=== PATIENT | female | born 1945 | race African-American/Black ===

== ENCOUNTER 2018-11-15 10:24 | Emergency (ER) | payer OTHER, BC ==
[~2018-11-15] VITALS: Ht 165.1 cm; Wt 83.9 kg
[2018-11-15 10:24] VITALS: BP 166/92
[~2018-11-15 10:24] MED LIST: ACTIGALL300 MG PO; AMLODIPINE BESY10 MG PO; ASPIR 8181 MG PO; CEPACOL SORE T1 EAC8 PO; LASIX 40 MG TAB40 M2 PO; LEVAQUIN 500 M500 M2 PO; MAGOX 400400 MG PO; NORCO 5-325 TA1 EACH PO; PEPCID20 MG PO; POTASSIUM20 PO; VIT D PO; WOMEN'S DAILY1 EAC1 PO
[2018-11-15] MEDS ORDERED: CIPRODEX OTIC7.5 ML OTIC (11:00)
== END 2018-11-15 11:00 | disposition home or self-care (01) ==
LOC: ER 10:24
DX: H60.93 Unspecified otitis externa, bilateral (principal); I10 Essential (primary) hypertension; Z90.710 Acquired absence of both cervix and uterus; Z90.49 Acquired absence of other specified parts of digestive tract

== ENCOUNTER → 2018-12-27 | Outpatient (CLI) | payer OTHER, BC ==
[~2018-12-27] MED LIST changes: +CIPRODEX OTIC7.5 ML OTIC
[2018-12-27 11:43] LABS: ABSOLUTE NEUTROPHILS 1.8 thou/uL (1.4-8.2); BASOPHILS 0.7 % (0.0-2.0); EOSINOPHILS 1.5 % (0.0-3.0); HEMATOCRIT 44.2 % (37.0-47.0); HEMOGLOBIN 15.1 gm/dL (12.0-15.0); LYMPHOCYTES 43.9 % (24.0-44.0); MCH 32.5 pg (26.0-34.0); MCHC 34.3 g/dL (28.0-37.0); MCV 94.9 fL (80.0-100.0); MONOCYTES 5.8 % (1.0-8.0); PLATELET COUNT 242 thou/uL (150-400); POLYS 48.1 % (36.0-66.0); RBC 4.66 mil/uL (4.20-5.00); WBC 3.8 thou/uL (4.0-11.0)
[2018-12-27 11:59] LABS: ALBUMIN 3.5 g/dL (3.4-5.0); ANION GAP 9 mmol/L (7-16); BUN 9 mg/dL (7-18); CALCIUM 9.3 mg/dL (8.5-10.1); CHLORIDE 107 mmol/L (98-107); CHOLESTEROL 226 mg/dL (<200); CO2 27 mmol/L (21-32); CREATININE 0.8 mg/dL (0.6-1.0); GLUCOSE 106 mg/dL (74-106); HDL CHOLESTEROL 74 mg/dL (>40); LDL CHOLESTEROL 136 mg/dL (<100); POTASSIUM 3.6 mmol/L (3.5-5.1); SGOT 25 U/L (15-37); SGPT 29 U/L (30-65); SODIUM 143 mmol/L (136-145); TC:HDL 3.1 Ratio (Not establshd); TOTAL BILIRUBIN 0.6 mg/dL (<0.1-1.0); TOTAL PROTEIN 7.4 g/dL (6.4-8.2); TRIGLYCERIDE 80 mg/dL (<150); VLDL 16 mg/dL (<40)
[2018-12-27 12:29] LABS: TSH 1.182 uIU/mL (0.358-3.740)
[2018-12-28 00:08] LABS: GLYCOHEMOGLOBIN (HGB A1C) 5.6 % (4.8-5.6)
== END ==
LOC: SEN 12-26 08:12
PROVIDERS: Nurse Practitioner Family
DX: I10 Essential (primary) hypertension (principal); Z83.3 Family history of diabetes mellitus; Z90.710 Acquired absence of both cervix and uterus; Z90.49 Acquired absence of other specified parts of digestive tract; Z79.899 Other long term (current) drug therapy

== ENCOUNTER → 2019-02-08 | Outpatient (CLI) | payer OTHER, BC ==
--- NOTE | 2019-02-09 09:18 | EKG ---
[place] [address] [facility] [place] [address] ELECTROCARDIOGRAM REPORT Name: YASMEEN CHAVEZY Nya [facility] [id number] ������������������ Admission: 02/08/19 ������������������ Attend Phys: ALETHEA Martínez Discharge: ������������������ Date of : 49 Report #: [id number] ����������������������������������������������������������������� [id number] THIS REPORT FOR: //name// [facility] Test Date: 2019-02-08 Test Time: 12:25:11 Pat Name: VELMA CHAVEZ Department: Room: Gender: F [employer] Specialist: Pieter POWERS : 1945 Requested By: Camila Campuzano Order Number: [id number] MD: Azeem Krishna Measurements Intervals [place] Rate: 50 P: 52 NM: 159 QRS: -19 QRSD: 104 T: 61 QT: 468 QTc: 427 Interpretive Statements Sinus rhythm Borderline left axis deviation Borderline T wave abnormalities Compared to ECG 10/07/2015 14:46:58 T-wave abnormality now present Electronically Signed On 02-09-2019 9:18:26 CDT by Azeem Krishna [email or web address] ��������������������������������������������� <ELECTRONICALLY SIGNED> ���������������������������������������� By: Azeem Krishna MD, [facility] ��������������������������������������������� 02/09/19 0918 1225 1225 Azeem Krishna MD, [facility] /EPI
== END ==
LOC: CV 11:03 → SEN 11:03
DX: I10 Essential (primary) hypertension (principal); I49.9 Cardiac arrhythmia, unspecified

== ENCOUNTER → 2019-03-13 | Outpatient (CLI) | payer OTHER, BC | LOC: SEN 03-09 10:42 | DX: S09.90XA Unspecified injury of head, initial encounter (principal); I10 Essential (primary) hypertension; V89.2XXA Person injured in unspecified motor-vehicle accident, traffic, initial encounter; Y93.89 Activity, other specified; Y92.89 Other specified places as the place of occurrence of the external cause; Y99.8 Other external cause status ==

== ENCOUNTER → 2019-09-13 | Outpatient (CLI) | payer OTHER, BC | LOC: RAD 12:40 | DX: Z12.31 Encounter for screening mammogram for malignant neoplasm of breast (principal) ==